=== PATIENT | male | born 1975 | race Caucasian/White ===

== ENCOUNTER 2016-11-13 07:23 | Emergency (ER) | payer BC ==
[2016-11-13 07:43] LABS: HEMOGLOBIN 14.5 gm/dl (14.0-17.5); RED BLOOD COUNT 4.67 M/UL (4.20-5.50); WHITE BLOOD COUNT 12.3 K/UL (4.5-11.0)
[2016-11-13 08:04] LABS: BUN/CREATININE RATIO 20 (0-10)
== END 2016-11-13 13:20 | disposition home or self-care (01) ==
LOC: ER1 07:23
PROVIDERS: Emergency Medicine
DX: R55 Syncope and collapse (principal); R00.1 Bradycardia, unspecified; R42 Dizziness and giddiness; R06.02 Shortness of breath; Z88.0 Allergy status to penicillin; Z88.1 Allergy status to other antibiotic agents
CPT/HCPCS: 36415; 70450; 71010; 80053; 82550; 82553; 83874; 84484; 85025; 85379; 93005; 93270; 93880; 96360; 96361; 99284

== ENCOUNTER 2020-07-08 20:46 | Emergency (ER) | payer OTHER, BC ==
[2020-07-08 22:42] LABS: HEMOGLOBIN 14.2 gm/dl (14.0-17.5); RED BLOOD COUNT 4.63 M/UL (4.20-5.50); WHITE BLOOD COUNT 9.9 K/UL (4.5-11.0)
[2020-07-08 22:57] LABS: BUN/CREATININE RATIO 22 (0-10)
[2020-07-09] MEDS ORDERED: PROTONIX40 MG PO (02:28)
== END 2020-07-09 02:38 | disposition home or self-care (01) ==
LOC: ER1 20:46
PROVIDERS: Emergency Medicine
DX: R07.89 Other chest pain (principal); Z88.0 Allergy status to penicillin; Z88.1 Allergy status to other antibiotic agents
CPT/HCPCS: 71045; 80053; 82550; 82553; 83690; 83735; 83874; 84484; 85025; 93005; 96365; 99285